=== PATIENT | female | born 1940 | race Caucasian/White ===

== ENCOUNTER 2025-01-11 14:21 | Emergency (ER) | payer MEDICARE, OTHER, SELFPAY ==
[2025-01-11] VITALS (31 sets, daily range): BP systolic 202–244; BP diastolic 94–110; PULSE 75–98; RESP 8–39; TEMP 37; O2SAT 93–98; BMI 38.3
--- NOTE | 2025-01-11 17:58 | DI.US.S_ITS ---
PROCEDURE: US PERIPH VENOUS LOW EXTREM LT INDICATIONS: pain/swelling TECHNIQUE: Real-time imaging, as well as color and pulse Doppler interrogation, were performed of the lower extremity deep veins from the inguinal ligament to the popliteal fossa, with documentation of the visualized calf veins. COMPARISON: None. FINDINGS: The common femoral, femoral, popliteal, and the visualized calf veins are normally compressible, and free of intraluminal thrombus. Color and pulse Doppler demonstrate normal phasic intraluminal flow. There is normal augmentation response to distal compression maneuver. IMPRESSION: No findings of lower extremity deep venous thrombosis. Dictated by: Vinicio Cruz M.D. on 01/11/2025 at 21:02 Approved by: Vinicio Cruz M.D. on 01/11/2025 at 21:03
--- NOTE | 2025-01-11 18:06 | ED_ITS ---
HPI - Extremity Problem <Ganga Pelaez MD - Last Filed: 01/19/25 10:13> General Chief complaint: Extremity Problem,Nontraumatic Stated complaint: Lt leg lymphatic blisters Time Seen by Provider: 01/11/25 17:27 Source: patient Mode of arrival: Ambulatory History of Present Illness HPI Narrative: Patient here with daughter. Noticed redness and blistering to the left lower leg above the ankle. Does not involve the ankle joint. No known injury no new medications. No prior history of DVT. No prior history of cellulitis. Blood pressure noted, patient and daughter state they take her blood pressure almost daily and it was normal yesterday. She states she is not anxious. Pain no shortness of breath. No prior history of CHF. No recent long travel. Related Data Previous Rx's ?Medication ?Instructions ?Recorded doxycycline hyclate 100 mg tablet 100 mg PO BID 10 day s #20 tabs 01/11/25 Allergies Allergy/AdvReac Type Severity Reaction Status Date / Time No Known Drug Allergies Allergy Verified 01/11/25 14:28 Review of Systems <Ganga Pelaez MD - Last Filed: 01/19/25 10:13> Review of Systems Narrative: GENERAL: Negative chills, fatigue, malaise, fever, sweats. HEENT: Negative sinus pain, ear pain, sore throat RESPIRATORY: Negative dyspnea, cough CARDIOVASCULAR: Negative chest pain, palpitations GASTROINTESTINAL: Negative vomiting, nausea, abdominal pain : Negative dysuria, frequency, hematuria MUSCULOSKELETAL: Negative muscle or bony pain SKIN: Negative rash, positive skin lesions NEUROLOGIC: Negative weakness, numbness ROS Unobtainable: All systems reviewed & are unremarkable except as noted in HPI and below Patient History <Ganga Pelaez MD - Last Filed: 01/19/25 10:13> Social History Smoking Status: Never smoker Smoking Status: Never smoker Exam <Ganga Pelaez MD - Last Filed: 01/19/25 10:13> Narrative Exam Narrative: GENERAL: in no distress, not toxic not dyspneic HEAD: Normocephalic. EYES: Pupils equal round ENT: Mucous membranes moist. NECK: Trachea midline. CARDIOVASCULAR: Regular rate and rhythm RESPIRATORY: Clear to auscultation. Breath sounds equal bilaterally. No wheezes, rales, or rhonchi. EXTREMITIES: No gross deformities. Examination left lower extremity is grossly symmetric to the right lower extremity. There is 2+ ankle edema. On the left leg distally posteriorly they are to serous blisters. Radiating anteriorly is some induration heaped up skin that is mildly tender to touch. No red streaking. No lymphangitis. Calf is nontender no palpable cords. Negative Homans test negative Encarnacion test. Feet are warm soft pink strong pedal pulses with brisk cap refills with light touch intact to feet and toes. Nontender ankles and knees. NEURO: AOx4. Clear speech SKIN: Warm and dry PSYCH: Not anxious, is cooperative Initial Vital Signs Initial Vital Signs: Vital Signs Temperature 98.6 F 01/11/25 14:28 Pulse Rate 95 H 01/11/25 14:28 Respiratory Rate 16 01/11/25 14:28 Blood Pressure 244/110 H 01/11/25 14:28 Pulse Oximetry 97 01/11/25 14:28 Oxygen Delivery Method Room Air 01/11/25 14:28 <Elpidio Chaudhry DO - Last Filed: 01/12/25 02:13> Initial Vital Signs Initial Vital Signs: Vital Signs Temperature 98.6 F 01/11/25 14:28 Pulse Rate 95 H 01/11/25 14:28 Respiratory Rate 16 01/11/25 14:28 Blood Pressure 244/110 H 01/11/25 14:28 Pulse Oximetry 97 01/11/25 14:28 Oxygen Delivery Method Room Air 01/11/25 14:28 Course <Ganga Pelaez MD - Last Filed: 01/19/25 10:13> Orders Ordered: Discontinued Medications Bacitracin (Bacitracin Oint 0.9 Gm Pckt) 1 applic TOP NOW ONE Stop: 01/11/25 21:26 Last Admin: 01/11/25 21:28 Dose: 1 applic Documented By: EM Doxycycline Hyclate (Doxycycline Hyclate 100 Mg Tablet) 100 mg PO NOW ONE Stop: 01/11/25 18:02 Last Admin: 01/11/25 18:36 Dose: 100 mg Documented By: COREEN Lisinopril (Lisinopril 10 Mg Tablet) 10 mg PO NOW ONE Stop: 01/11/25 17:59 Last Admin: 01/11/25 18:36 Dose: 10 mg Documented By: COREEN Mupirocin (Mupirocin 22 Gm Oint) 1 applic TOP NOW ONE Stop: 01/11/25 21:23 Last Admin: 01/11/25 21:26 Dose: Not Given Documented By: LS Vital Signs Vital signs: Vital Signs - 8 hr 01/11/25 18:30 01/11/25 19:00 01/11/25 19:19 Pulse Rate 85 83 Respiratory Rate 18 26 H Blood Pressure 230/104 H 227/105 H Pulse Oximetry 97 97 Oxygen Delivery Method Room Air 01/11/25 19:19 01/11/25 19:20 01/11/25 19:20 Pulse Rate 80 83 Respiratory Rate 13 14 Blood Pressure 228/108 H Pulse Oximetry 96 96 Oxygen Delivery Method Room Air Room Air 01/11/25 19:30 01/11/25 19:40 01/11/25 19:40 Pulse Rate 82 85 Respiratory Rate 22 12 Blood Pressure 224/103 H Pulse Oximetry 96 98 Oxygen Delivery Method Room Air 01/11/25 20:00 01/11/25 20:20 01/11/25 20:20 Pulse Rate 92 H 95 H Respiratory Rate 18 13 Blood Pressure 239/108 H Pulse Oximetry 95 95 Oxygen Delivery Method 01/11/25 20:30 01/11/25 20:30 01/11/25 20:34 Pulse Rate 98 H 91 H Respiratory Rate 21 13 Blood Pressure 236/103 H Pulse Oximetry 96 96 Oxygen Delivery Method Room Air Room Air 01/11/25 20:34 01/11/25 20:40 01/11/25 20:40 Pulse Rate 91 H Respiratory Rate 11 L Blood Pressure 231/97 H 202/94 H Pulse Oximetry 96 Oxygen Delivery Method Room Air 01/11/25 21:00 01/11/25 21:00 01/11/25 21:20 Pulse Rate 91 H 92 H Respiratory Rate 8 L 25 H Blood Pressure 222/99 H Pulse Oximetry 95 93 Oxygen Delivery Method Room Air Room Air 01/11/25 21:20 01/11/25 21:30 Pulse Rate 93 H Respiratory Rate 39 H Blood Pressure 226/102 H Pulse Oximetry 95 Oxygen Delivery Method Room Air <Elpidio Chaudhry DO - Last Filed: 01/12/25 02:13> Orders Ordered: Discontinued Medications Bacitracin (Bacitracin Oint 0.9 Gm Pckt) 1 applic TOP NOW ONE Stop: 01/11/25 21:26 Last Admin: 01/11/25 21:28 Dose: 1 applic Documented By: EM Doxycycline Hyclate (Doxycycline Hyclate 100 Mg Tablet) 100 mg PO NOW ONE Stop: 01/11/25 18:02 Last Admin: 01/11/25 18:36 Dose: 100 mg Documented By: COREEN Lisinopril (Lisinopril 10 Mg Tablet) 10 mg PO NOW ONE Stop: 01/11/25 17:59 Last Admin: 01/11/25 18:36 Dose: 10 mg Documented By: COREEN Mupirocin (Mupirocin 22 Gm Oint) 1 applic TOP NOW ONE Stop: 01/11/25 21:23 Last Admin: 01/11/25 21:26 Dose: Not Given Documented By: EM Vital Signs Vital signs: Vital Signs - 8 hr 01/11/25 18:30 01/11/25 19:00 01/11/25 19:19 Pulse Rate 85 83 Respiratory Rate 18 26 H Blood Pressure 230/104 H 227/105 H Pulse Oximetry 97 97 Oxygen Delivery Method Room Air 01/11/25 19:19 01/11/25 19:20 01/11/25 19:20 Pulse Rate 80 83 Respiratory Rate 13 14 Blood Pressure 228/108 H Pulse Oximetry 96 96 Oxygen Delivery Method Room Air Room Air 01/11/25 19:30 01/11/25 19:40 01/11/25 19:40 Pulse Rate 82 85 Respiratory Rate 22 12 Blood Pressure 224/103 H Pulse Oximetry 96 98 Oxygen Delivery Method Room Air 01/11/25 20:00 01/11/25 20:20 01/11/25 20:20 Pulse Rate 92 H 95 H Respiratory Rate 18 13 Blood Pressure 239/108 H Pulse Oximetry 95 95 Oxygen Delivery Method 01/11/25 20:30 01/11/25 20:30 01/11/25 20:34 Pulse Rate 98 H 91 H Respiratory Rate 21 13 Blood Pressure 236/103 H Pulse Oximetry 96 96 Oxygen Delivery Method Room Air Room Air 01/11/25 20:34 01/11/25 20:40 01/11/25 20:40 Pulse Rate 91 H Respiratory Rate 11 L Blood Pressure 231/97 H 202/94 H Pulse Oximetry 96 Oxygen Delivery Method Room Air 01/11/25 21:00 01/11/25 21:00 01/11/25 21:20 Pulse Rate 91 H 92 H Respiratory Rate 8 L 25 H Blood Pressure 222/99 H Pulse Oximetry 95 93 Oxygen Delivery Method Room Air Room Air 01/11/25 21:20 01/11/25 21:30 Pulse Rate 93 H Respiratory Rate 39 H Blood Pressure 226/102 H Pulse Oximetry 95 Oxygen Delivery Method Room Air MDM - Extremity (Nontraumatic) <Ganga Pelaez MD - Last Filed: 01/19/25 10:13> Lab Data 01/11/25 19:15 01/11/25 19:15 Labs: Lab Results 01/11/25 Range/Units 19:15 WBC 6.1 (4.5-11.0) X10^3/uL RBC 4.81 (4.0-5.2) X10^6/uL Hgb 15.0 (12.0-16.0) g/dL Hct 43.9 (36-46) % MCV 91.4 (80-100) fL MCH 31.2 (26-34) PG MCHC 34.1 (30-36) % RDW 13.9 (11.6-14.8) % Plt Count 256 (150-400) X10^3/uL Neut % (Auto) 55.4 (50-75) % Lymph % (Auto) 28.9 (25-40) % Bracken % (Auto) 12.9 (3-14) % Eos % (Auto) 1.7 L (2-4) % Baso % (Auto) 1.1 (0-2) % Neut # (Auto) 3400 (3502-0946) /uL Lymph # (Auto) 1800 (7323-5981) /uL Bracken # (Auto) 800 (0-900) /uL Eos # (Auto) 100 (0-450) /uL Baso # (Auto) 100 (0-100) /uL Sodium 140 (137-145) mmol/L Potassium 3.8 (3.4-5.1) mmol/L Chloride 106 (98-107) mmol/L Carbon Dioxide 25 (22-32) mmol/L BUN 13 (7-17) mg/dL Creatinine 0.57 (0.52-1.04) mg/dL Estimated GFR > 60 (>60) mL/min BUN/Creatinine Ratio 22.8 H (6-22) Glucose 150 H (70-99) mg/dL Calcium 9.1 (8.4-10.2) mg/dL Total Bilirubin 0.7 (0.2-1.3) mg/dL AST 23 (14-36) IU/L ALT 22 (<35) IU/L Alkaline Phosphatase 79 (38-126) U/L Total Protein 7.5 (6.3-8.2) g/dL Albumin 4.2 (3.5-5.0) g/dL Globulin 3.3 (1.7-4.1) g/dL Albumin/Globulin Ratio 1.3 (1.0-2.8) [facility] Narrative Medical decision making narrative: Patient here with daughter. Noticed redness and blistering to the left lower leg above the ankle. Does not involve the ankle joint. No known injury no new medications. No prior history of DVT. No prior history of cellulitis. Blood pressure noted, patient and daughter state they take her blood pressure almost daily and it was normal yesterday. She states she is not anxious. Pain no shortness of breath. No prior history of CHF. No recent long travel. After history and exam, CBC CMP ultrasound left leg lisinopril doxycycline [facility] Medical records reviewed: Walk-in clinic notes just prior to arrival. Differential considered: Includes but not limited to cellulitis drug reaction Almeida Bertrand DVT venous stasis contact dermatitis Lab Test results independently reviewed as above. Pertinent findings: Imaging studies independently reviewed: Consultations: Re-evaluations: Discussion: Diagnosis: 6:[address] Pelaez: Sign out to Dr. Chaudhry, labs are pending. Images are pending. Blood pressure noted and will need re-evaluation after lisinopril <Elpidio Chaudhry, DO - Last Filed: 01/12/25 02:13> Lab Data Labs: Lab Results 01/11/25 Range/Units 19:15 WBC 6.1 (4.5-11.0) X10^3/uL RBC 4.81 (4.0-5.2) X10^6/uL Hgb 15.0 (12.0-16.0) g/dL Hct 43.9 (36-46) % MCV 91.4 (80-100) fL MCH 31.2 (26-34) PG MCHC 34.1 (30-36) % RDW 13.9 (11.6-14.8) % Plt Count 256 (150-400) X10^3/uL Neut % (Auto) 55.4 (50-75) % Lymph % (Auto) 28.9 (25-40) % Bracken % (Auto) 12.9 (3-14) % Eos % (Auto) 1.7 L (2-4) % Baso % (Auto) 1.1 (0-2) % Neut # (Auto) 3400 (9680-4213) /uL Lymph # (Auto) 1800 (9697-8848) /uL Bracken # (Auto) 800 (0-900) /uL Eos # (Auto) 100 (0-450) /uL Baso # (Auto) 100 (0-100) /uL Sodium 140 (137-145) mmol/L Potassium 3.8 (3.4-5.1) mmol/L Chloride 106 (98-107) mmol/L Carbon Dioxide 25 (22-32) mmol/L BUN 13 (7-17) mg/dL Creatinine 0.57 (0.52-1.04) mg/dL Estimated GFR > 60 (>60) mL/min BUN/Creatinine Ratio 22.8 H (6-22) Glucose 150 H (70-99) mg/dL Calcium 9.1 (8.4-10.2) mg/dL Total Bilirubin 0.7 (0.2-1.3) mg/dL AST 23 (14-36) IU/L ALT 22 (<35) IU/L Alkaline Phosphatase 79 (38-126) U/L Total Protein 7.5 (6.3-8.2) g/dL Albumin 4.2 (3.5-5.0) g/dL Globulin 3.3 (1.7-4.1) g/dL Albumin/Globulin Ratio 1.3 (1.0-2.8) Imaging Data US - DVT: Radiologist's Impression: [address] [address] Ultrasound Report Signed Patient: Dinah Curtis MR#: [id number] : 1940 Acct:[id number] Age/Sex: 84 / F Date of Service: 01/11/25 Loc: ED Accession Number: [id number] Procedure: US periph venous low extrem lt Ordering Provider: Ganga Pelaez MD PROCEDURE: US PERIPH VENOUS LOW EXTREM LT INDICATIONS: pain/swelling TECHNIQUE: Real-time imaging, as well as color and pulse Doppler interrogation, were performed of the lower extremity deep veins from the inguinal ligament to the popliteal fossa, with documentation of the visualized calf veins. COMPARISON: None. FINDINGS: The common femoral, femoral, popliteal, and the visualized calf veins are normally compressible, and free of intraluminal thrombus. Color and pulse Doppler demonstrate normal phasic intraluminal flow. There is normal augmentation response to distal compression maneuver. IMPRESSION: No findings of lower extremity deep venous thrombosis. [facility] Narrative Medical decision making narrative: Patient here with daughter. Noticed redness and blistering to the left lower leg above the ankle. Does not involve the ankle joint. No known injury no new medications. No prior history of DVT. No prior history of cellulitis. Blood pressure noted, patient and daughter state they take her blood pressure almost daily and it was normal yesterday. She states she is not anxious. Pain no shortness of breath. No prior history of CHF. No recent long travel. After history and exam, CBC CMP ultrasound left leg lisinopril doxycycline [facility] Medical records reviewed: Walk-in clinic notes just prior to arrival. Differential considered: Includes but not limited to cellulitis drug reaction Almeida Bertrand DVT venous stasis contact dermatitis Lab Test results independently reviewed as above. Pertinent findings: Imaging studies independently reviewed: Consultations: Re-evaluations: Discussion: Diagnosis: 6:[address] Pelaez: Sign out to Dr. Chaudhry, labs are pending. Images are pending. Blood pressure noted and will need re-evaluation after lisinopril 2049: Patient was re-evaluated by me, no new complaints at this time, she is still asymptomatic hypertension, she is not having any chest pain shortness of breath headache visual disturbances. Patient's lab work unremarkable no leukocytosis, creatinine is 0.57 with a GFR greater than 60. Patient had already received doxycycline for cellulitis given blistering. Ultrasound performed showed no evidence of DVT. Patient states that she has a history of white coat hypertension, she also states that she is not having any headache visual disturbances chest pain shortness of breath, she states that she feels comfortable going home, she states that she does not follow with a primary care doctor she [facility], she states that she does not like taking medications and states that she will just ?keep an eye on her blood pressure I informed her to check her blood pressures weekly and if they remain elevated it would be recommended that she see primary care to start antihypertensive. She verbalized understanding of this. She will be treated for cellulitis instructed to follow up with primary care in outpatient setting she verbalized understanding of this agrees to being discharged home with outpatient follow up. Discharge Plan Departure Patient Disposition: Home Clinical Impression: Cellulitis, Asymptomatic hypertension Instructions: DI for Cellulitis -- Adult Activity Restrictions/Additional Instructions: Please follow up with primary care in outpatient setting Please read the discharge instructions sheet carefully and bring all papers to all doctor follow-up visits, as it may contain information that your doctor may want to see. Disease processes change and evolve, if your symptoms worsen or if you develop any new symptoms that are concerning to you please return for evaluation. Your evaluation today does not show any evidence of any life- threatening/serious illnesses requiring admission to the hospital or surgery. Please follow-up with your doctor for re-evaluation in approximately 1 day. Seek immediate medical attention for any worrisome symptoms. *If you do not have a primary care provider please contact the [facility] Resource line at [phone]. They will ask some questions about your medical history and help get you set up with a doctor in the community. Prescriptions: New doxycycline hyclate 100 mg tablet 100 mg PO BID 10 Days Qty: 20 0RF Referrals: Miscellaneous,[facility] [Primary Care Provider, Medical] Stand Alone Forms: Patient Portal/API/Survey
[2025-01-11] MEDS: DOXYCYCLINE HYCLATE 100 MG TABLET PO (18:36)
[2025-01-11] MEDS: lisinopriL 10 MG TABLET PO (18:36)
--- NOTE | 2025-01-11 19:15 | PC.NURSE ---
2 small red spots noted on anterior and anterio-medical lower leg daughter states started approx 1 week ago. Posterior lower leg has a much larger reddened, dry, flaking area x 2 days which is the reason they presented to ED today.
[2025-01-11 19:24] LABS: Add Manual Diff / Slide Review NO; Basophils Absolute Auto 100 /uL (0-100); Basophils Percent Auto 1.1 % (0-2); Eosinophils Absolute Auto 100 /uL (0-450); Eosinophils Percent Auto 1.7 % (2-4); Hematocrit 43.9 % (36-46); Lymphocytes Absolute Auto 1800 /uL (1100-4500); Lymphocytes Percent Auto 28.9 % (25-40); Mean Corpuscular HGB Conc 34.1 % (30-36); Mean Corpuscular Hemoglobin 31.2 PG (26-34); Mean Corpuscular Volume 91.4 fL (80-100); Monocytes Absolute Auto 800 /uL (0-900); Monocytes Percent Auto 12.9 % (3-14); Neutrophils Absolute Auto 3400 /uL (1500-7000); Neutrophils Percent Auto 55.4 % (50-75); Platelet Count 256 X10^3/uL (150-400); Red Blood Cell Count 4.81 X10^6/uL (4.0-5.2); Red Cell Distribution Width 13.9 % (11.6-14.8); White Blood Cell Count 6.1 X10^3/uL (4.5-11.0)
[2025-01-11 19:43] LABS: Alanine Aminotransferase 22 IU/L (<35); Albumin 4.2 g/dL (3.5-5.0); Albumin Globulin Ratio 1.3 (1.0-2.8); Alkaline Phosphatase 79 U/L (38-126); Aspartate Aminotransferase 23 IU/L (14-36); BUN Creatinine Ratio 22.8 (6-22); Bilirubin Total 0.7 mg/dL (0.2-1.3); Blood Urea Nitrogen 13 mg/dL (7-17); Calcium 9.1 mg/dL (8.4-10.2); Carbon Dioxide 25 mmol/L (22-32); Chloride 106 mmol/L (98-107); Estimated Glomerular Filt Rate > 60 mL/min (>60); Globulin 3.3 g/dL (1.7-4.1); Glucose 150 mg/dL (70-99); HEMOLYSIS < 15 (0-50); Potassium 3.8 mmol/L (3.4-5.1); Sodium 140 mmol/L (137-145); Total Protein 7.5 g/dL (6.3-8.2)
--- NOTE | 2025-01-11 19:58 | PC.NURSE ---
US at bedside
--- NOTE | 2025-01-11 20:16 | INF.NOTE ---
US at bedside
--- NOTE | 2025-01-11 20:23 | PC.NURSE ---
Ambulatory to restroom without difficulty or assistance
[2025-01-11] MEDS: BACITRACIN OINT 0.9 GM PCKT 1 APPLIC TOP (21:28)
--- NOTE | 2025-01-11 21:35 | PC.NURSE ---
Wound dressed with bacitracin and wrapped with non-adherent gauze
== END 2025-01-11 21:39 | disposition home or self-care (01) ==
PROVIDERS: Emergency Medicine; Emergency Provider Student in an Organized Health Care Education/Training Program
DX: L03.116 Cellulitis of left lower limb (principal); I10 Essential (primary) hypertension
CPT/HCPCS: 36415; 80053; 85025; 93971; 99284